=== PATIENT | female | born 1950 | race Two or more races ===

== ENCOUNTER 2016-11-08 08:58 | Outpatient (CLI) | payer BC ==
[2016-11-08] MEDS ORDERED: DIATR MEGLU/DIATRIZOATE SODIUM 120 ML BOTTLE (GASTROGRAPHIN) ONE (09:19)
[2016-11-08] MEDS ORDERED: BARIUM SULFATE 98% 135 ML SUSP.RECON PO ONE (09:19)
== END 2016-11-08 23:59 | disposition home or self-care (01) ==
LOC: RAD 08:58
DX: A04.9 Bacterial intestinal infection, unspecified (principal); K59.00 Constipation, unspecified; R14.0 Abdominal distension (gaseous)
CPT/HCPCS: 74246; 74250; Q9963

== ENCOUNTER 2020-01-15 04:46 | Emergency (ER) | payer BC ==
[~2020-01-15] VITALS: Ht 152.4 cm; Wt 61.2 kg
[2020-01-15 04:46] VITALS: BP 147/80
[2020-01-15] MEDS ORDERED: LORAZEPAM 1 MG TABLET ONE (04:59)
[2020-01-15] MEDS ORDERED: LORAZEPAM 1 MG TABLET PO ONE (05:00)
== END 2020-01-15 07:05 | disposition home or self-care (01) ==
LOC: ER 04:47
DX: F41.9 Anxiety disorder, unspecified (principal)